=== PATIENT | female | born 1960 | race Caucasian/White ===

== ENCOUNTER 2018-11-29 12:18 | Emergency (ER) | payer OTHER ==
[~2018-11-29] VITALS: Ht 160 cm; Wt 70.3 kg
[~2018-11-29 12:18] MED LIST: ATIVAN1 MG PO; HYDROCODONE BIT1 T11 PO; Lopressor25 MG; MOTRIN800 MG PO; ZITHROMAX Z-PA250 MG PO
[2018-11-29] MEDS ORDERED: NAPROSYN500 MG PO (14:35)
[2018-11-29] MEDS ORDERED: ROBAXIN500 M1 PO (14:35)
[2018-11-29] MEDS ORDERED: MEDROL DOSEPAK4 MG PO (14:35)
== END 2018-11-29 14:44 | disposition home or self-care (01) ==
LOC: ED 12:18
DX: S29.012A Strain of muscle and tendon of back wall of thorax, initial encounter (principal); R07.81 Pleurodynia; M54.5 Low back pain; Z79.899 Other long term (current) drug therapy; W11.XXXA Fall on and from ladder, initial encounter; W18.09XA Striking against other object with subsequent fall, initial encounter; Y93.89 Activity, other specified; Y92.89 Other specified places as the place of occurrence of the external cause; Y99.8 Other external cause status

== ENCOUNTER → 2019-01-26 | Outpatient (CLI) | payer OTHER ==
[~2019-01-26] MED LIST changes: +MEDROL DOSEPAK4 MG PO; +NAPROSYN500 MG PO; +ROBAXIN500 M1 PO
[2019-01-27 08:06] LABS: RHEUMATOID ARTHRITIS FACTOR <10.0 IU/mL (0.0-13.9)
[2019-01-27 22:03] LABS: CCP ANTIBODIES IGG/IGA 3 units (0-19)
== END | disposition home or self-care (01) ==
LOC: LAB 13:40
PROVIDERS: Family Medicine
DX: M06.9 Rheumatoid arthritis, unspecified (principal); M25.511 Pain in right shoulder; M25.541 Pain in joints of right hand; M25.542 Pain in joints of left hand; Z91.81 History of falling

== ENCOUNTER → 2020-04-25 | Outpatient (CLI) | payer OTHER | LOC: COVID19 13:06 | PROVIDERS: ATTEND Family Medicine | DX: Z20.828 Contact with and (suspected) exposure to other viral communicable diseases (principal) ==

== ENCOUNTER 2020-12-31 13:03 | Emergency (ER) | payer OTHER ==
[~2020-12-31] VITALS: Ht 157.4 cm; Wt 73.5 kg
[2020-12-31 14:49] LABS: BASO # 0.1 10*3/uL (0.0-0.1); EOS # 0.4 10*3/uL (0.0-0.4); EOS % 5.7 % (1.0-4.0); HEMATOCRIT 40.8 % (37.0-47.0); LYMPH # 2.5 10*3/uL (1.3-4.4); MEAN CELL VOLUME 99.5 fl (81.0-99.0); MEAN CORPUSCULAR HGB 31.5 pg (27.0-31.0); MEAN CORPUSCULAR HGB CONC 31.6 g/dl (33.0-37.0); MEAN PLATELET VOLUME 10.6 fl (9.6-12.3); MONO # 0.6 10*3/uL (0.1-1.0); MONO % 9.6 % (3.0-9.0); NEUT # 2.7 10*3/uL (2.3-7.9); NEUT % 43.5 % (47.0-73.0); PLATELET COUNT AUTOMATED 272 10*3/uL (130-400); RED CELL DISTRI WIDTH 12.5 % (0-14.5); WHITE BLOOD COUNT 6.1 10*3/uL (4.8-10.8)
[2020-12-31 14:53] LABS: BILIRUBIN Negative (Negative); BLOOD Negative (Negative); CLARITY Clear (Clear); COLOR Yellow (Yellow); GLUCOSE Negative (Negative); KETONE Negative (Negative); LEUKO ESTERASE Negative (Negative); NITRITE Negative (Negative)
[2020-12-31 15:03] LABS: ALKALINE PHOSPHATASE 86 U/L (45-117); BUN 7 mg/dl (7-24); CHLORIDE 105 mmol/L (98-107); CREATININE 0.92 mg/dL (0.55-1.02); LIPASE 139 U/L (73-393); POTASSIUM 4.1 mmol/L (3.5-5.1); SGOT/AST 17 IU/L (3-35); SGPT/ALT 24 U/L (12-78); SODIUM 141 mmol/L (136-145); TOTAL PROTEIN 8.1 gm/dL (6.4-8.2)
[2020-12-31 15:09] LABS: BACTERIA 2+; EPITHELIAL CELLS TNTC; RBC 0-2 rbc/hpf (0-2)
[2020-12-31] MEDS ORDERED: CYCLOBENZAPRINE5 M3 PO (15:34)
[2020-12-31] MEDS ORDERED: HYDROCODONE-AC1 EAC1 PO (15:34)
== END 2020-12-31 15:45 | disposition home or self-care (01) ==
LOC: ED 13:03
PROVIDERS: Physician Assistant
DX: M54.5 Low back pain (principal)

== ENCOUNTER → 2021-11-12 | Outpatient (CLI) | payer OTHER ==
[~2021-11-12] MED LIST changes: +CYCLOBENZAPRINE5 M3 PO; +HYDROCODONE-AC1 EAC1 PO
== END | disposition home or self-care (01) ==
LOC: RAD 14:13
PROVIDERS: ATTEND Family Medicine
DX: R22.32 Localized swelling, mass and lump, left upper limb (principal)

== ENCOUNTER → 2022-04-30 | Outpatient (CLI) | payer OTHER | END | disposition home or self-care (01) | LOC: RAD 13:59 | PROVIDERS: ATTEND Family Medicine | DX: M47.816 Spondylosis without myelopathy or radiculopathy, lumbar region (principal); M25.78 Osteophyte, vertebrae ==

== ENCOUNTER → 2022-06-18 | Outpatient (CLI) | payer OTHER | END | disposition home or self-care (01) | LOC: ORTHO 02:17 | PROVIDERS: ATTEND Orthopaedic Surgery | DX: M16.12 Unilateral primary osteoarthritis, left hip (principal) ==

== ENCOUNTER → 2022-07-01 | Outpatient (CLI) | payer OTHER | END | disposition home or self-care (01) | LOC: RAD 10:08 | PROVIDERS: ATTEND Chiropractor | DX: M50.30 Other cervical disc degeneration, unspecified cervical region (principal); M48.02 Spinal stenosis, cervical region ==

== ENCOUNTER → 2024-10-12 | Outpatient (CLI) | payer MEDICARE ==
[2024-10-12 13:16] LABS: BASO # 0.1 10*3/uL (0.0-0.1); EOS # 0.2 10*3/uL (0.0-0.4); EOS % 3.9 % (1.0-4.0); HEMATOCRIT 42.1 % (37.0-47.0); MEAN CELL VOLUME 97.9 fl (81.0-99.0); MEAN CORPUSCULAR HGB 30.7 pg (27.0-31.0); MEAN CORPUSCULAR HGB CONC 31.4 g/dl (33.0-37.0); MEAN PLATELET VOLUME 10.5 fl (9.6-12.3); MONO # 0.5 10*3/uL (0.1-1.0); MONO % 9.1 % (3.0-9.0); NEUT # 1.7 10*3/uL (2.3-7.9); NEUT % 33.2 % (47.0-73.0); PLATELET COUNT AUTOMATED 272 10*3/uL (130-400); RED CELL DISTRI WIDTH 12.5 % (0-14.5); WHITE BLOOD COUNT 5.2 10*3/uL (4.8-10.8)
[2024-10-12 14:03] LABS: ALKALINE PHOSPHATASE 87 U/L (46-116); BUN 12 mg/dl (9-23); CHLORIDE 102 mmol/L (98-107); CHOLESTEROL 271 mg/dL (<200); LDL CHOLESTEROL 180 mg/dL (9-159); POTASSIUM 3.8 mmol/L (3.4-5.1); SGPT/ALT 11 U/L (5-49); TOTAL PROTEIN 7.6 gm/dL (6.0-8.0); TRIGLYCERIDES 149 mg/dl (<150)
== END | disposition home or self-care (01) ==
LOC: LAB 12:54
PROVIDERS: ATTEND Registered Nurse
DX: Z51.81 Encounter for therapeutic drug level monitoring (principal); Z79.899 Other long term (current) drug therapy; E55.9 Vitamin D deficiency, unspecified